=== PATIENT | male | born 1955 | race Hispanic/Latino ===

== ENCOUNTER 2022-03-30 12:15 | Emergency (ER) | payer MEDICARE ==
[~2022-03-30 12:15] MED LIST: ATROPINE 1MG SYG IVP ONE; CACL 1GM SYG IVP ONE; EPINEPHRINE 1MG/10ML(1:10,000) 0.1 MG/ML SYG ONE; SODIUM BICARB 8.4% 50ML SYRINGE ONE
[2022-03-30 12:20] VITALS: BP 0/0
[2022-03-30 12:38] LABS: ABG BASE EXCESS -10.9 mmol/L (-2.0-3.0); ABG HCO3 20.4 mmol/L (21.0-28.0); ABG OXYGEN SATURATION 88.3 % (95.0-99.0); ABG PCO2 71 mmHg (35-48)
== END 2022-03-30 17:00 ==
LOC: EDH 12:15
DX: I46.9 Cardiac arrest, cause unspecified (principal); I21.3 ST elevation (STEMI) myocardial infarction of unspecified site
CPT/HCPCS: 99291; 92950; 31500; 82947; 82435; 84132; 84295; 82803; 85018; 83605; 93005; 36600; J0171; J0461; J3490 ×2